=== PATIENT | female | born 1955 | race Caucasian/White ===

== ENCOUNTER 2021-09-27 11:02 | Emergency (ER) | payer OTHER ==
[~2021-09-27] VITALS: Ht 172.7 cm; Wt 80.7 kg
[2021-09-27 11:23] VITALS: BP 157/77
--- NOTE | 2021-09-27 11:27 | NUR ---
PT TO WAIT IN LOBBY.
--- NOTE | 2021-09-27 11:28 | NUR ---
65 Y/O FEMALE C/O RASH X1WEEK. PT STATES SHE TOOK BENADRYL AND APPLIED HYDROCORTISONE WITH NO RELIEF. +PRURITIS, DENIES N/V/D.N DENIES SOB. DENIES CP. DENIES PMH NKA
[2021-09-27] MEDS ORDERED: PRED20TA5 PO (12:23)
[2021-09-27] MEDS ORDERED: LORA10TA19 PO (12:23)
[2021-09-27 12:32] VITALS: BP 157/77
--- NOTE | 2021-09-27 12:32 | NUR ---
Patient discharged with v/s stable. Written and verbal after care instructions ABOUT HIVES given and explained. Patient alert, oriented and verbalized understanding of instructions. Ambulatory with steady gait. All questions addressed prior to discharge. ID band removed. Patient advised to follow up with PMD. Rx of CLARITIN, DELTASONE given. Patient educated on indication of medication including possible reaction and side effects. Opportunity to ask questions provided and answered.
== END 2021-09-27 12:32 | disposition home or self-care (01) ==
LOC: MED 11:02
DX: L50.9 Urticaria, unspecified (principal); Z79.899 Other long term (current) drug therapy
CPT/HCPCS: 99282; 99283

== ENCOUNTER 2023-10-10 07:06 | Day surgery (SDC) | payer OTHER ==
[~2023-10-10] VITALS: Ht 172.7 cm; Wt 77.6 kg
[~2023-10-10 07:06] MED LIST: LORA10TA19 PO; PRED20TA5 PO
[2023-10-10] MEDS ORDERED: fentaNYL citrate 0.05 MG/ML VIAL ONE (08:35)
[2023-10-10] MEDS ORDERED: MIDAZOLAM 5 MG/5 ML VIAL ONE (08:35)
[2023-10-10] MEDS: fentaNYL citrate 0.05 MG/ML VIAL IVP ONE (09:05)
== END 2023-10-10 10:00 | disposition home or self-care (01) ==
LOC: MDS 07:06 → MMU 07:24 → MDS 10:00
PROVIDERS: ATTEND Internal Medicine Gastroenterology
DX: R14.0 Abdominal distension (gaseous) (principal); M19.90 Unspecified osteoarthritis, unspecified site; Z85.038 Personal history of other malignant neoplasm of large intestine; Z98.0 Intestinal bypass and anastomosis status; Z80.0 Family history of malignant neoplasm of digestive organs; Z79.899 Other long term (current) drug therapy
CPT/HCPCS: 45378; J3010; J2250